=== PATIENT | male | born 1980 | race Caucasian/White ===

== ENCOUNTER 2019-06-26 22:11 | Emergency (ER) | payer OTHER ==
[~2019-06-26] VITALS: Ht 180.3 cm; Wt 94.8 kg
[2019-06-26] MEDS ORDERED: TRAMADOL 50 MG50 MG PO (22:16)
[2019-06-26] MEDS ORDERED: CARVEDILOL12.5 MG PO (22:16)
[2019-06-26 22:35] LABS: ABSOLUTE BASOPHILS 0.1 thou/uL (0.0-0.2); ABSOLUTE LYMPHOCYTES 3.2 thou/uL (0.8-5.3); ABSOLUTE MONOCYTES 1.3 thou/uL (0.0-1.2); ABSOLUTE NEUTROPHILS 8.1 thou/uL (1.6-8.1); BASOPHILS 0.7 %; EOSINOPHILS 0.2 %; HEMATOCRIT 49.2 % (42.0-52.0); HEMOGLOBIN 16.7 gm/dL (14.0-18.0); LYMPHOCYTES 25.3 %; MCH 30.4 pg (26.0-34.0); MCHC 33.9 g/dL (28.0-37.0); MCV 89.6 fL (80.0-100.0); MONOCYTES 9.9 %; MPV 9.2 fl. (7.2-11.1); NUCLEATED RBCS 0 /100WBC; PLATELET COUNT* 243 thou/uL (150-400); POLYS 63.9 %; RBC 5.49 mil/uL (4.50-6.00); RDW-CV 13.9 % (10.5-14.5); WBC 12.7 thou/uL (4.0-11.0)
[2019-06-26 22:42] LABS: CALCIUM 9.2 mg/dL (8.5-10.1); CREATININE 1.3 mg/dL (0.6-1.3); POTASSIUM 3.6 mmol/L (3.5-5.1)
[2019-06-26 22:46] LABS: ALBUMIN 4.1 g/dL (3.4-5.0); TOTAL BILIRUBIN 1.7 mg/dL (<0.1-1.0); TOTAL PROTEIN 8.3 g/dL (6.4-8.2)
[2019-06-26] MEDS ORDERED: KEFLEX500 M1 PO (23:14)
[2019-06-27 00:30] VITALS: BP 126/94
== END 2019-06-27 00:30 | disposition left against medical advice (07) ==
LOC: M.ERS 22:11
PROVIDERS: Family Medicine
DX: S11.91XA Laceration without foreign body of unspecified part of neck, initial encounter (principal); I10 Essential (primary) hypertension; Z88.0 Allergy status to penicillin; X99.1XXA Assault by knife, initial encounter; Y93.89 Activity, other specified; Y92.89 Other specified places as the place of occurrence of the external cause; Y99.8 Other external cause status